=== PATIENT | female | born 1970 | race African-American/Black ===

== ENCOUNTER 2016-07-24 16:09 | Emergency (ER) | payer OTHER ==
[2016-07-24 16:17] VITALS: BP 126/89; PULSE 97; TEMP 97.7; BMI 38.6
[2016-07-24] MEDS ORDERED: IBUPROFEN 400 MG TABLET (FP) PO ONE ×2 (16:53→16:55)
--- NOTE | 2016-07-24 17:11 | PDOC ---
History of Present Illness - General Chief Complaint: Headache Stated Complaint: HEADACHE Time Seen by Provider: 07/24/16 16:27 History Source: Patient - History of Present Illness Timing/Duration: reports: week Associated Symptoms: reports: nasal congestion. denies: cough, earache, fever/ chills, headache, nasal drainage, sore throat Past History - Past Medical History Allergies/Adverse Reactions: Allergies Allergy/AdvReac Type Severity Reaction Status Date / Time No Known Allergies Allergy Verified 07/24/16 16:10 Home Medications: Ambulatory Orders Clonazepam [KlonoPIN] 0.5 mg PO TID PRN 07/24/16 Ibuprofen [Motrin -] 800 mg PO Q6H #30 tablet 07/24/16 Pseudoephedrine HCl [Sudafed] 60 mg PO Q6H #20 tablet 07/24/16 Asthma: No HTN: Yes Psychiatric Problems: Yes (anxiety) Suicide Attempt (Hx): No Other medical history: SINUS INFECTION - Reproductive History Cervical CA: No Dysfunctional Uterine Bleeding: No Ectopic : No Endometrial CA: No Polycystic Ovaries: No Therapeutic (s) & number: Yes (1) Tubal Ligation: No - Immunization History Immunization Up to Date: Yes - Psycho/Social/Smoking Cessation Hx Anxiety: Yes Suicidal Ideation: No Smoking Status: Yes Smoking History: Never smoked Years of Tobacco Use: 20 Have you smoked in the past 12 months: No Number of Cigarettes Smoked Daily: 0 If you are a former smoker, when did you quit?: 6 YRS AGO Information on smoking cessation initiated: No Hx Alcohol Use: No Drug/Substance Use Hx: No Substance Use Type: None Review of Systems - Review of Systems Constitutional: No: Chills, Fever HEENTM: Yes: Nose Congestion. No: Ear Pain, Throat Pain Respiratory: No: Cough Neurological: No: Headache, Dizziness *Physical Exam - Vital Signs Last Vital Signs Temp Pulse Resp BP Pulse Ox 97.7 F 97 H 18 126/89 97 07/24/16 16:13 07/24/16 16:13 07/24/16 16:13 07/24/16 16:13 07/24/16 16:13 - Physical Exam General Appearance: Yes: Appropriately Dressed. No: Apparent Distress HEENT: positive: Normal ENT Inspection, Normal Voice, TMs Normal, Pharynx Normal. negative: Scleral Icterus (R), Scleral Icterus (L), Sinus Tenderness Neck: positive: Supple. negative: Lymphadenopathy (R), Lymphadenopathy (L) Respiratory/Chest: negative: Respiratory Distress Integumentary: positive: Dry, Warm Neurologic: positive: Fully Oriented, Alert, Normal Mood/Affect ED Treatment Course - Medications Given in the ED: ED Medications Discontinued Medications Generic Name Dose Route Start Last Admin Trade Name Eliot PRN Reason Stop Dose Admin Ibuprofen 800 mg 07/24/16 16:53 07/24/16 16:57 Motrin - PO 07/24/16 16:54 800 mg ONCE ONE Administration Medical Decision Making - Medical Decision Making 07/24/16 17:23 45-year-old female, no significant history, here with facial pain x 1 week. Patient reports discomfort over her maxillary and frontal sinuses with possible nasal congestion 1 week. Has been using nasal spray with no relief as per patient. Denies rhinorrhea, headache, fever or chills. Patient well-appearing and stable with unremarkable exam. Most likely URI, doubt acute sinusitis at this time. Dc with Sudafed and pain control. Patient instructed to refrain from using nasal spray for more than 3 days as can cause worsening congestion. Given ENT follow-up if symptoms persist 07/24/16 17:28 *DC/Admit/Observation/Transfer Diagnosis at time of Disposition: Sinus pressure - Discharge Dispostion Disposition: HOME - Prescriptions Prescriptions: Ibuprofen [Motrin -] 800 mg PO Q6H #30 tablet Pseudoephedrine HCl [Sudafed] 60 mg PO Q6H #20 tablet - Referrals Referrals: Hernando Santo MD [Primary Care Provider] - Uriah Webb MD [Staff Physician] - - Patient Instructions Additional Instructions: Take meds as directed and if symptoms persist follow-up with Dr. Webb of ENT if symptoms persist
== END 2016-07-24 17:16 | disposition home or self-care (01) ==
LOC: JERFT 16:09
DX: J34.89 Other specified disorders of nose and nasal sinuses (principal); I10 Essential (primary) hypertension; F41.9 Anxiety disorder, unspecified
CPT/HCPCS: 99281-25

== ENCOUNTER 2016-09-09 15:03 | Emergency (ER) | payer OTHER ==
[2016-09-09 15:22] VITALS: BP 149/96; PULSE 89; TEMP 98.2; BMI 37.8
--- NOTE | 2016-09-09 16:22 | PDOC ---
History of Present Illness - General Chief Complaint: Headache Stated Complaint: PAIN Time Seen by Provider: 09/09/16 15:34 History Source: Patient Exam Limitations: No Limitations - History of Present Illness Initial Comments: 09/09/16 16:16 Patient is here with complaints of sinus congestion and fullness. States suffers from seasonal ALLERGIES and has used ear tech in the past with some resolved. Uses nasal antihistamine, as well as Azelastine but feels is not working. Is unable to take decongestants due to palpitations that cause. Has been seen ENT but is never discussed ALLERGY shots. Patient denies fever, denies purulent drainage from nose. Has copious postnasal drainage. Timing/Duration: unsure Severity: mild, moderate Associated Symptoms: reports: headaches (frontal and sinus). denies: fever/ chills Past History - Travel Traveled outside of the country in the last 30 days: No Close contact w/someone who was outside of country & ill: No - Past Medical History Allergies/Adverse Reactions: Allergies Allergy/AdvReac Type Severity Reaction Status Date / Time No Known Allergies Allergy Verified 07/24/16 16:10 Home Medications: Ambulatory Orders Clonazepam [KlonoPIN] 0.5 mg PO TID PRN 07/24/16 Ibuprofen [Motrin -] 800 mg PO Q6H #30 tablet 07/24/16 Pseudoephedrine HCl [Sudafed] 60 mg PO Q6H #20 tablet 07/24/16 Cetirizine HCl [24Hour Allergy] 10 mg PO DAILY #30 tablet 09/09/16 Fluticasone Prop 0.05% Nasal [Flonase -] 1 - 2 spray NS DAILY #1 spray.pump 11/20 Asthma: No HTN: Yes Psychiatric Problems: Yes (anxiety) Suicide Attempt (Hx): No - Reproductive History Cervical CA: No Dysfunctional Uterine Bleeding: No Ectopic : No Endometrial CA: No Polycystic Ovaries: No Therapeutic (s) & number: Yes (1) Tubal Ligation: No - Immunization History Immunization Up to Date: Yes - Psycho/Social/Smoking Cessation Hx Anxiety: Yes Suicidal Ideation: No Smoking Status: Yes Smoking History: Never smoked Years of Tobacco Use: 20 Have you smoked in the past 12 months: No Number of Cigarettes Smoked Daily: 0 If you are a former smoker, when did you quit?: 6 YRS AGO Hx Alcohol Use: Yes (occasionally) Drug/Substance Use Hx: No Substance Use Type: None Review of Systems - Review of Systems Able to Perform ROS?: Yes Is the patient limited Ivorian proficient: Yes Constitutional: Yes: Symptoms Reported, Malaise HEENTM: Yes: Symptoms Reported, See HPI, Nose Pain, Nose Congestion. No: Difficulty Swallowing Respiratory: Yes: Symptoms reported, See HPI Neurological: Yes: Symptoms reported, See HPI, Headache (frontal ) All Other Systems: Reviewed and Negative *Physical Exam - Vital Signs Last Vital Signs Temp Pulse Resp BP Pulse Ox 98.2 F 89 16 149/96 99 09/09/16 15:19 09/09/16 15:19 09/09/16 15:19 09/09/16 15:19 09/09/16 15:19 - Physical Exam General Appearance: Yes: Nourished, Appropriately Dressed, Apparent Distress, Mild Distress HEENT: positive: EOMI, BUSTER, TMs Normal (congested but landmarks ), Scleral Icterus (L) (with Jimbo's lines and ALLERGIC shiners), Nasal Congestion, Rhinorrhea, Sinus Tenderness (and fullness to frontal ethmoid and maxillary sinuses,). negative: Normal ENT Inspection Neck: positive: Supple. negative: Tender, Lymphadenopathy (R) Respiratory/Chest: positive: Lungs Clear, Normal Breath Sounds Extremity: positive: Normal Capillary Refill, Normal Inspection Integumentary: positive: Normal Color, Dry Neurologic: positive: sleeve separator II-XII NML intact, Fully Oriented, Alert, Normal Mood/ Affect *DC/Admit/Observation/Transfer Diagnosis at time of Disposition: Sinus congestion Allergic rhinitis Qualifiers: Allergic rhinitis trigger: unspecified Allergic rhinitis seasonality: seasonal Qualified Code(s): J30.2 - Other seasonal allergic rhinitis - Discharge Dispostion Disposition: HOME Condition at time of disposition: Stable Admit: No - Referrals Referrals: Hernando Santo MD [Primary Care Provider] - Jey Galvan MD [Staff Physician] - - Patient Instructions Printed Discharge Instructions: DI for Allergic Rhinitis Additional Instructions: Rest, drink lots of fluids: Teas, water, soups Saltwater gargles. Consider humidifier in room at night Steamy showers/seem to face break up mucus Avoid contact with allergens, exposure to pollens, close windows on a windy day Lots of handwashing and good hygiene Continue [id number] medications for symptomatic relief- may use allergic eyedrops for itching I Continue antihistamines daily until pollen season is over; Zyrtec, Claritin, Aide during the daytime and Benadryl at nighttime as will make sleepy Tylenol or Motrin for fever and pain Followup with private physician in one to 2 days as needed Consider following up with an playback operator/medical technologist blood bank for skin testing and possible allergy shots Return to emergency department for worsened symptoms, fevers, dehydration - Post Discharge Activity Work/School Note: Back to Work
== END 2016-09-09 16:27 | disposition home or self-care (01) ==
LOC: JERFT 15:03
DX: J30.2 Other seasonal allergic rhinitis (principal); I10 Essential (primary) hypertension; F41.8 Other specified anxiety disorders
CPT/HCPCS: 99281-25

== ENCOUNTER 2016-09-15 16:18 | Emergency (ER) | payer SELFPAY ==
[2016-09-15 16:26] VITALS: BP 122/38; TEMP 98.3; BMI 36.8
--- NOTE | 2016-09-15 17:11 | PDOC ---
History of Present Illness - General Chief Complaint: Weakness Stated Complaint: WEAKNESS, HEAD PRESSURE Time Seen by Provider: 09/15/16 16:39 History Source: Patient Exam Limitations: No Limitations - History of Present Illness Initial Comments: CHIEF COMPLAINT: 45 y/o female with PMH anxiety, recurrent migraine headaches c /o continued frontal head pressure. HISTORY OF PRESENT ILLNESS: The patient was seen here 1 week ago for similar symptoms in [facility] She was diagnosed with seasonal allergies and discharged with zyrtec to take daily, which she has been doing. she states she has had no relief in symptoms, continues to have frontal squeezing headache and today felt weak. She denies f/c, changes in vision/hearing, cough, neck pain, nasal congestion, n/v/d, CP, SOB, abd pain, back pain. Vital signs on arrival are notable for pulse of 106. REVIEW OF SYSTEMS: GENERAL/CONSTITUTIONAL: No fever/chills. No weakness. No weight change. HEAD, EYES, EARS, NOSE AND THROAT: No change in vision. No ear pain or discharge. No sore throat. CARDIOVASCULAR: No chest pain or shortness of breath. RESPIRATORY: No cough, wheezing, or hemoptysis. GASTROINTESTINAL: No abd pain, nausea, vomiting, diarrhea. GENITOURINARY: No dysuria, frequency, or change in urination. MUSCULOSKELETAL: No joint or muscle swelling or pain. No neck or back pain. SKIN: No rash or easy bruising. NEUROLOGIC: +frontal headache and frontal face pain. No vertigo, loss of consciousness, or loss of sensation. PHYSICAL EXAM: GENERAL: The patient is awake, alert, and fully oriented, in no acute distress. She is well appearing and ambulatory. HEAD: Normal with no signs of trauma. No pain with palpation of frontal maxillary or ethmoid sinuses. ENT: Pupils equal, round and reactive to light, extraocular movements intact, sclera anicteric, conjunctiva clear. Neck supple. No photophobia. Inflamed, erythematous nasal turbinates. LUNGS: Clear to auscultation bilaterally. Normal excursion. No respiratory distress or use of accessory muscles. CV: RRR, S1/S2, no MRG. Cap refill < 2 sec. ABDOMEN: Soft, non-distended, non-tender even to deep palpation, no hepatomegaly or splenomegaly, no masses. EXTREMITIES: Normal range of motion, no edema. NEUROLOGICAL: Normal speech, normal gait. CN II-XII grossly intact. PSYCH: Normal mood, normal affect. SKIN: Warm, dry, normal turgor, no rashes or lesions noted. Past History - Past Medical History Allergies/Adverse Reactions: Allergies Allergy/AdvReac Type Severity Reaction Status Date / Time No Known Allergies Allergy Verified 09/15/16 16:26 Home Medications: Ambulatory Orders Clonazepam [KlonoPIN] 0.5 mg PO TID PRN 07/24/16 Ibuprofen [Motrin -] 800 mg PO Q6H #30 tablet 07/24/16 Pseudoephedrine HCl [Sudafed] 60 mg PO Q6H #20 tablet 07/24/16 Cetirizine HCl [24Hour Allergy] 10 mg PO DAILY #30 tablet 09/09/16 Fluticasone Prop 0.05% Nasal [Flonase -] 1 - 2 spray NS DAILY #1 spray.pump 11/20 Amoxicillin - [Amoxicillin 500mg Capsule -] 500 mg PO TID #21 capsule 09/15/16 Indomethacin 25 mg PO TID PRN #7 capsule 09/15/16 Asthma: No HTN: Yes Psychiatric Problems: Yes (anxiety) Suicide Attempt (Hx): No - Reproductive History Cervical CA: No Dysfunctional Uterine Bleeding: No Ectopic : No Endometrial CA: No Polycystic Ovaries: No Therapeutic (s) & number: Yes (1) Tubal Ligation: No - Immunization History Immunization Up to Date: Yes - Psycho/Social/Smoking Cessation Hx Anxiety: Yes Suicidal Ideation: No Smoking Status: Yes Smoking History: Never smoked Years of Tobacco Use: 20 Have you smoked in the past 12 months: No Number of Cigarettes Smoked Daily: 0 If you are a former smoker, when did you quit?: 6 YRS AGO Information on smoking cessation initiated: No Hx Alcohol Use: No Drug/Substance Use Hx: No Substance Use Type: None *Physical Exam - Vital Signs Last Vital Signs Temp Pulse Resp BP Pulse Ox 98.3 F 106 H 19 122/38 99 09/15/16 16:24 09/15/16 16:24 09/15/16 16:24 09/15/16 16:24 09/15/16 16:24 Medical Decision Making - Medical Decision Making A/P: 45 y/o female with frontal squeezing headache for the past 2 weeks which has failed to improve despite zyrtec treatment. The patient has had similar headaches in the past and has been worked up by neurologist. Indocin has worked previously. Plan is as follows: 1. hcg hcg - negative The patient has been seen for this in the past and Indocin was the only thing that helped. Will order PO indocin and reassess. I am signing this patient out to my colleague: LES Connor In brief, this patient is being seen in the ED for a chief complaint of: headache I have completed the initial assessment interview note and have ordered: hcg and PO indocin I have reviewed the following results: hcg Pending results are: none Please call the PCP: rohit Plan for disposition is as follows: Pending *DC/Admit/Observation/Transfer Diagnosis at time of Disposition: Sinus pressure Headache Qualifiers: Headache type: tension-type Headache chronicity pattern: acute headache Intractability: not intractable Qualified Code(s): G44.209 - Tension-type headache, unspecified, not intractable - Discharge Dispostion Disposition: HOME - Prescriptions Prescriptions: Amoxicillin - [Amoxicillin 500mg Capsule -] 500 mg PO TID #21 capsule Indomethacin 25 mg PO TID PRN #7 capsule PRN Reason: Moderate Pain - Referrals Referrals: Hernando Santo MD [Primary Care Provider] - - Patient Instructions Printed Discharge Instructions: Sinus Headache Additional Instructions: follow up with you neurologist and your PMD as soon as possible drink plenty of fluids continue zyrtec once daily. stop using flonase. take tylenol or ibuprofen as needed for pain. continue amoxicillin as order
[2016-09-15] MEDS: INDOMETHACIN 50 MG CAPSULE PO ONE (19:17)
--- NOTE | 2016-09-15 19:18 | PDOC ---
[id number] 122/38 99 09/15/16 16:24 09/15/16 16:24 09/15/16 16:24 09/15/16 16:24 09/15/16 16:24 - Physical Exam General Appearance: Yes: Appropriately Dressed HEENT: positive: Other (no sinus tenderness. reports nasal congestion and green drainage) Respiratory/Chest: positive: Lungs Clear, Normal Breath Sounds Cardiovascular: positive: Regular Rhythm, Regular Rate Gastrointestinal/Abdominal: positive: Normal Bowel Sounds, Soft Extremity: positive: Normal Capillary Refill, Normal Inspection, Normal Range of Motion Integumentary: positive: Normal Color, Dry, Warm Neurologic: positive: Fully Oriented, Alert, Normal Mood/Affect, Normal Response , Motor Strength 10/08 ED Treatment Course - ADDITIONAL ORDERS Additional order review: Laboratory Results 09/15/16 17:20 Urine HCG, Qual Negative - Medications Given in the ED: ED Medications Discontinued Medications Generic Name Dose Route Start Last Admin Trade Name Freq PRN Reason Stop Dose Admin Indomethacin 50 mg 09/15/16 17:42 09/15/16 19:17 Indocin - PO 09/15/16 17:43 50 mg ONCE ONE Administration Progress Note - Progress Note Progress Note: A: headache sinus vs migraine P: patient has seen neurologist for headache. prescribed topamax patient reports noncompliance. patient is reporting sinus congestion with green nasal drainage. patient reports taking flonase and excerdrine daily for several days. will advise to discontinue due to rebound headache. Medical Decision Making - Medical Decision Making 09/15/16 20:29 patient reports pain relief . still feels nasal stuffiness/ congestion. will sent home with amoxicillin and prn indomethacin *DC/Admit/Observation/Transfer Diagnosis at time of Disposition: Sinus pressure Headache Qualifiers: Headache type: tension-type Headache chronicity pattern: acute headache Intractability: not intractable Qualified Code(s): G44.209 - Tension-type headache, unspecified, not intractable - Discharge Dispostion Disposition: HOME - Prescriptions Prescriptions: Amoxicillin - [Amoxicillin 500mg Capsule -] 500 mg PO TID #21 capsule Indomethacin 25 mg PO TID PRN #7 capsule PRN Reason: Moderate Pain - Referrals Referrals: Hernando Santo MD [Primary Care Provider] - - Patient Instructions Printed Discharge Instructions: Sinus Headache Additional Instructions: follow up with you neurologist and your PMD as soon as possible drink plenty of fluids continue zyrtec once daily. stop using flonase. take tylenol or ibuprofen as needed for pain. continue amoxicillin as order
[2016-09-15 20:51] VITALS: PULSE 75
--- NOTE | 2016-09-16 11:40 | EKG ---
Test Reason : Blood Pressure : / mmHG Vent. Rate : 077 BPM Atrial Rate : 077 BPM P-R Int : 146 ms QRS Dur : 086 ms QT Int : 398 ms P-R-T Axes : 055 007 030 degrees QTc Int : 450 ms NORMAL SINUS RHYTHM MINIMAL VOLTAGE CRITERIA FOR LVH, MAY BE NORMAL VARIANT CANNOT RULE OUT INFERIOR INFARCT , AGE UNDETERMINED CANNOT RULE OUT ANTERIOR INFARCT (CITED ON OR BEFORE 05-JUN-2016) ABNORMAL ECG WHEN COMPARED WITH ECG OF 05-JUN-2016 17:53, NO SIGNIFICANT CHANGE WAS FOUND Confirmed by MODESTO GUTIÉRREZ MD ([id number]) on 09/16/2016 11:39:39 AM Referred By: Confirmed By:MODESTO GUTIÉRREZ MD
== END 2016-09-15 20:53 | disposition home or self-care (01) ==
LOC: JER 16:18
DX: G44.209 Tension-type headache, unspecified, not intractable (principal); G43.909 Migraine, unspecified, not intractable, without status migrainosus; J32.8 Other chronic sinusitis
CPT/HCPCS: 84703; 93005; 93010; 99284-25

== ENCOUNTER 2021-01-21 23:13 | Emergency (ER) | payer OTHER ==
[2021-01-21 23:31] VITALS: BMI 25.7
[2021-01-22 00:01] VITALS: TEMP 97.8
[2021-01-22] MEDS ORDERED: METOCLOPRAMIDE HCL INJECTION 10 MG/2 ML VIAL IVPUSH ONE (00:20)
[2021-01-22] MEDS ORDERED: ACETAMINOPHEN 500 MG TABLET (FP) PO ONE (00:20)
[2021-01-22] MEDS ORDERED: SODIUM CHLORIDE 1,000 ML IV STA (00:20)
[2021-01-22] MEDS ORDERED: ACETAMINOPHEN 325 MG TABLET (FP) ONE (00:29)
[2021-01-22] MEDS ORDERED: METOCLOPRAMIDE HCL INJECTION 10 MG/2 ML VIAL ONE (00:30)
[2021-01-22 01:09] LABS: BASO % 0.8 % (0-2.0); EOS % 2.6 % (0-4.5); HEMATOCRIT 36.8 % (32.4-45.2); HEMOGLOBIN 12.5 GM/dL (10.7-15.3); LYMPH % 31.1 % (8-40); MCH 30.2 pg (25.7-33.7); MCHC 33.9 g/dl (32.0-36.0); MEAN PLT VOLUME 8.1 fl (7.5-11.1); MONO % 8.6 % (3.8-10.2); NEUT % 56.9 % (42.8-82.8); PLATELET COUNT 240 10^3/uL (134-434); RBC 4.14 M/mm3 (3.60-5.2); RDW 13.2 % (11.6-15.6); WHITE BLOOD COUNT 4.7 K/mm3 (4.0-10.0)
[2021-01-22 01:34] LABS: CHLORIDE 109 mmol/L (98-107); SODIUM 140 mmol/L (136-145)
[2021-01-22 01:36] LABS: CALCIUM 8.6 mg/dL (8.5-10.1)
[2021-01-22 01:37] LABS: ANION GAP 5 MMOL/L (8-16); BLOOD UREA NITROGEN 9.6 mg/dL (7-18); CO2 27 mmol/L (21-32); GLUCOSE,RANDOM 93 mg/dL (74-106)
[2021-01-22 01:40] LABS: CREATININE 0.8 mg/dL (0.55-1.3); SGOT/AST 24 U/L (15-37); SGPT/ALT 31 U/L (13-61)
[2021-01-22 01:42] LABS: BILIRUBIN,TOTAL 0.4 mg/dL (0.2-1); TOT PROT 7.5 g/dl (6.4-8.2)
[2021-01-22 01:43] LABS: ALK PHOS 65 U/L (45-117)
[2021-01-22 03:06] VITALS: BP 143/93; PULSE 63
== END 2021-01-22 03:07 | disposition home or self-care (01) ==
LOC: JER 23:13
PROC: 3E033GC Introduction of Other Therapeutic Substance into Peripheral Vein, Percutaneous Approach (ICD-10-PCS; principal; 2021-01-21)
DX: R29.818 Other symptoms and signs involving the nervous system (principal); I10 Essential (primary) hypertension
CPT/HCPCS: 36415; 70450-TC; 80053; 82550; 84443; 84484; 85025; 93005; 93010; 99285-25; C9803; U0003; U0005